=== PATIENT | female | born 1955 | race Caucasian/White ===

== ENCOUNTER 2017-09-08 17:13 | Emergency (ER) | payer BC ==
[~2017-09-08] VITALS: Ht 165.1 cm; Wt 59.0 kg
[~2017-09-08 17:13] MED LIST: ALBU90OI INH; AMIT10; AMLO5 PO; AMOX500 PO; ASPI81CH PO; ASPI81EC PO; AZIT250 PO; Baclofen10 MG PO; CALCAVITD PO; CEPH500 PO; CHOL10002 PO; CLAR500 PO; CLON.1 PO; CLOP75 PO; CRUTCH3 USE; CYAN500 SL; CYCL10 PO; Copegus200 MG PO; DARB200I SC; DICL25ER PO; DILT120 PO; FERR325 PO; FLUSAL5005 INH; FURO20 PO; FURO40 PO; FURO80 PO; HYDACE5; HYDACE5 PO; HYDACE7.5L PO; HYDR1TAB94 PO; HYDRA50 PO; IBUP600 PO; LISI5 PO; LOSA50 PO; METO100 PO; METO100ER PO; METO5 PO; METO50 PO; MULVITMIND PO; MULVITMINF PO; Metoprolol Tar100 MG PO; NAPR500 PO; NICO7 TOP; NITR100CA PO; OMEP10ER PO; OMEP20ER PO; ONDA4 PO; OXYACE5T PO; OXYC5 PO; PANT40 PO; PEGASYS180 MCG/0. SQ; PEGINTERFERON ALFA; POTA8; POTCHL20ER PO; PRAV10 PO; PRED20 PO; PROM25 PO; Percocet 5-3251 EACH PO; RAME8 PO; RIBA200 PO; Roxicodone5 MG PO; SERT25 PO; SUCR1 PO; SULTRIDS PO; Spironolactone25 MG PO; TRAM50 PO; Ultram50 MG PO; Valium5 MG PO; [UNRECOGNIZED DRUG - OTHER]
[2017-09-08 17:50] LABS: BASOPHILS ABSOLUTE AUTO 0.04 K/mm3 (0.00-0.23); BASOPHILS PERCENT AUTO 0 % (0-2); EOSINOPHILS ABSOLUTE AUTO 0.21 K/mm3 (0.00-0.68); EOSINOPHILS PERCENT AUTO 2 % (0-6); Hematocrit 39.9 % (33.0-51.0); Hemoglobin 12.9 g/dL (11.5-16.0); IMMATURE GRAN ABSOLUTE AUTO 0.02 K/mm3 (0.00-0.10); IMMATURE GRAN PERCENT AUTO 0 % (0-1); LYMPHOCYTES ABSOLUTE AUTO 2.01 K/mm3 (0.84-5.20); LYMPHOCYTES PERCENT AUTO 21 % (21-46); MONOCYTES ABSOLUTE AUTO 0.82 K/mm3 (0.16-1.47); MONOCYTES PERCENT AUTO 9 % (4-13); Mean Corpuscular HGB 29.8 pg (26.0-34.0); Mean Corpuscular HGB Conc 32.3 g/dL (31.5-36.5); Mean Corpuscular Volume 92 fL (80-100); Mean Platelet Volume 10.6 fL (9.1-12.4); NEUTROPHILS ABSOLUTE AUTO 6.38 K/mm3 (1.96-9.15); NEUTROPHILS PERCENT AUTO 67 % (41-73); Platelet Count 322 K/mm3 (150-400); RDW Coefficient Variation 13.3 % (11.7-14.2); RDW Standard Deviation 45.1 fL (35.1-46.3); Red Blood Cell Count 4.33 M/mm3 (3.80-5.20); White Blood Cell Count 9.48 K/mm3 (4.00-11.30)
[2017-09-08] MEDS ORDERED: LOSA50 PO (18:03)
[2017-09-08] MEDS ORDERED: META800 PO (18:03)
[2017-09-08] MEDS ORDERED: ATOR20 PO (18:04)
[2017-09-08] MEDS ORDERED: METO50 PO (18:04)
[2017-09-08 18:06] LABS: Alanine Aminotransfer (ALT/SGP 17 U/L (12-78); Albumin, Blood 3.7 g/dL (3.4-5.0); Alk Phos 76 U/L (50-136); Anion Gap 4 mmol/L (6-16); Aspartate Aminotrans (AST/SGOT 19 U/L (12-37); Bilirubin, Total 0.2 mg/dL (0.1-1.0); Blood Urea Nitrogen 14 mg/dL (8-24); Bun/Creatinine Ratio 22.3 (12.0-20.0); CO2, Blood 27 mmol/L (21-32); Calcium, Blood 9.2 mg/dL (8.5-10.1); Chloride, Blood 105 mmol/L (98-108); Creatinine, Blood 0.63 mg/dL (0.40-1.00); Globulin, Blood 3.8 g/dL (2.2-4.0); Glomerular Filtration Rate >60 (60-); Glucose, Blood 106 mg/dL (70-99); Potassium, Blood 4.2 mmol/L (3.5-5.5); Sodium, Blood 136 mmol/L (136-145); Total Protein, Blood 7.5 g/dL (6.4-8.2)
== END 2017-09-08 20:55 | disposition home or self-care (01) ==
LOC: ER 17:13
PROVIDERS: Emergency Medicine
DX: M54.12 Radiculopathy, cervical region (principal); Z88.5 Allergy status to narcotic agent; Z88.8 Allergy status to other drugs, medicaments and biological substances; Z79.899 Other long term (current) drug therapy; I11.0 Hypertensive heart disease with heart failure; I50.9 Heart failure, unspecified; J44.9 Chronic obstructive pulmonary disease, unspecified; F17.210 Nicotine dependence, cigarettes, uncomplicated
CPT/HCPCS: 36415; 70450; 72125; 80053; 83690; 85025; 93005; 93010; 96374; 96376; 99284; J1100; J2405